=== PATIENT | female | born 1970 | race Caucasian/White ===

== ENCOUNTER 2018-05-21 18:39 | Emergency (ER) | payer MEDICAID ==
[2018-05-21 19:24] VITALS: BP 157/78; PULSE 105; RESP 20; TEMP 98.2; O2SAT 100
[2018-05-21 20:21] LABS: APPEARANCE,URINE Clear; BILIRUBIN,URINE NEGATIVE (NEGATIVE); COLOR,URINE Yellow; GLUCOSE, URINE (UA) NEGATIVE (NEGATIVE); KETONES,URINE NEGATIVE (NEGATIVE); LEUKOCYTE ESTERASE ,URINE NEGATIVE (NEGATIVE); NITRATE,URINE NEGATIVE (NEGATIVE); OCCULT BLOOD,URINE NEGATIVE (NEG-TRACE); PH,URINE 7.5; UROBILINOGEN,URINE 0.2 (0.2-1.0 EU)
[2018-05-21 20:53] LABS: RBC,URINE NEG (0-3AV/HPF); WBC,URINE NEG (0-5AV/HPF)
[2018-05-21 20:54] LABS: BACTERIA NEGATIVE (< 1+); CRYSTALS NEGATIVE (0-3 AVE/HPF); EPITHELIAL CELLS 0-2 & CLUMPS ALSO (SQUAMOUS)
[2018-05-21] MEDS ORDERED: AZITHROMYCIN 250 MG TAB PO ONE (21:43)
[2018-05-21] MEDS ORDERED: CEFTRIAXONE 1 GM PDS IM ONE (21:44)
[2018-05-21] MEDS ORDERED: CEFTRIAXONE 1 GM PDS ONE (21:45)
[2018-05-21] MEDS ORDERED: AZITHROMYCIN 250 MG TAB ONE (21:45)
== END 2018-05-21 22:20 | disposition home or self-care (01) | DRG 923 ==
LOC: ED 18:39
DX: T74.21XA Adult sexual abuse, confirmed, initial encounter (principal)
CPT/HCPCS: 81001; 96372; 99284; J0696; A9270-GY